=== PATIENT | female | born 1955 | race Hispanic/Latino ===

== ENCOUNTER 2019-01-03 03:46 | Emergency (ER) | payer SELFPAY ==
[2019-01-03 04:12] VITALS: BP 196/82
[2019-01-03] MEDS ORDERED: DELTASONE PO ONE (04:27)
[2019-01-03] MEDS ORDERED: TORADOL IM ONE (04:27)
--- NOTE | 2019-01-03 04:29 | Emergency Department Report ---
HPI - General Chief Complaint: Extremity Injury, Upper Time Seen by Provider: 01/03/19 04:25 - HPI HPI: Patient is a pleasant 63-year-old female who comes to the ER tonight after waking up from her sleep with her right arm and fingers having paracentesis. She states that today while at work Dr. Patterson had her walk a patient in room 3. The patient became weak and started to fall and the patient used her right arm to prevent the patient from falling until Shlomo could calm and help with the patient. Patient states that immediately after the injury she felt some pain in her distal forearm but didn't think anything of it. However, she became alarmed when she woke up tonight with additional symptoms. ED Past Medical Hx - Past Medical History Previous Medical History?: Yes Hx Hypertension: Yes Additional medical history: Thyroid Disease - Surgical History Past Surgical History?: Yes Additional Surgical History: , Tonsilectomy - Social History Smoking Status: Never Smoker Substance Use Type: None - Medications Home Medications: Home Medications Medication Instructions Recorded Confirmed Last Taken Type Cyclobenzaprine [Flexeril] 10 mg PO TID PRN #10 tablet 01/03/19 Unknown Rx Ibuprofen [Motrin] 800 mg PO Q8HR PRN #20 tablet 01/03/19 Unknown Rx predniSONE [Deltasone] 20 mg PO DAILY #5 tablet 01/03/19 Unknown Rx ED Review of Systems ROS: Stated complaint: RIGHT WRIST/SHOULDER PAIN Other details as noted in HPI Comment: All other systems reviewed and negative Physical Exam - Physical Exam Vital Signs: Vital Signs 01/03/19 04:02 Temperature 98.6 F Pulse Rate 82 Respiratory 16 Rate Blood Pressure 196/82 O2 Sat by Pulse 100 Oximetry Physical Exam: ALERT AND ORIENTED FULL ROM SPASM RIGHT TRAP RAPID CAP REFILL RADIAL/ULNA PULSE NORMAL DROVE SELF TO ER ED Course Vital Signs 01/03/19 04:02 Temperature 98.6 F Pulse Rate 82 Respiratory 16 Rate Blood Pressure 196/82 O2 Sat by Pulse 100 Oximetry - Reevaluation(s) Reevaluation #1: 01/03/19 04:27 HOME RX SYNTHROID NORVASC ED Medical Decision Making - Radiology Data Radiology results: report reviewed, image reviewed TORADOL IM AND PREDNISONE PO GIVEN IN ER XRAYS NOTED DC HOME WITH DC PLAN OF CARE AND FOLLOW UP WITH [employer] IN AM Vital Signs 01/03/19 04:02 Temperature 98.6 F Pulse Rate 82 Respiratory 16 Rate Blood Pressure 196/82 O2 Sat by Pulse 100 Oximetry - Medical Decision Making XRAY Vital Signs 01/03/19 04:02 Temperature 98.6 F Pulse Rate 82 Respiratory 16 Rate Blood Pressure 196/82 O2 Sat by Pulse 100 Oximetry - Differential Diagnosis RO FX/DISLOCATION Critical care attestation.: If time is entered above; I have spent that time in minutes in the direct care of this critically ill patient, excluding procedure time. ED Disposition Clinical Impression: Strain of right upper arm, Muscle spasm Disposition: DC-01 TO HOME OR SELFCARE Is pt being admited?: No Does the pt Need Aspirin: No Condition: Stable Instructions: Muscle Strain (ED) Additional Instructions: MEDS ORDERED TONIGHT FOLLOW UP WITH [employer] [facility] IN THE AM WARM COMPRESSES AND BATHS. Prescriptions: predniSONE [Deltasone] 20 mg PO DAILY #5 tablet Cyclobenzaprine [Flexeril] 10 mg PO TID PRN #10 tablet PRN Reason: Muscle Spasm Ibuprofen [Motrin] 800 mg PO Q8HR PRN #20 tablet PRN Reason: Pain , Severe (7-10) Referrals: ZAIN FLORENCE MD [Staff Physician] - 3-5 Days Forms: Work/School Release Form(ED) Time of Disposition: 04:27
--- NOTE | 2019-01-03 04:52 | XRay Report ---
RIGHT FOREARM 2 VIEWS 0437 INDICATION: PAIN R ARM, lifting injury, finger numbness which has resolved COMPARISON: None available. FINDINGS: No fractures or dislocations are seen. RIGHT SHOULDER 3 VIEWS 0435 INDICATION: PAIN R ARM, lifting injury COMPARISON: None available. FINDINGS: No fractures or dislocations are seen. Moderate spurring is seen inferiorly from the acromi on which may impinge on the rotator cuff. Signer Name: Topher Acosta MD Signed: 01/03/2019 4:48 AM Workstation Name: [id number]
== END 2019-01-03 05:31 | disposition home or self-care (01) ==
LOC: ED 03:46
DX: S46.911A Strain of unspecified muscle, fascia and tendon at shoulder and upper arm level, right arm, initial encounter (principal); I10 Essential (primary) hypertension; Z90.89 Acquired absence of other organs; Z88.1 Allergy status to other antibiotic agents; W19.XXXA Unspecified fall, initial encounter; Y93.89 Activity, other specified; Y92.89 Other specified places as the place of occurrence of the external cause; Y99.8 Other external cause status
CPT/HCPCS: 73030; 73090; 96372; 99283; J1885; J7512

== ENCOUNTER 2019-06-10 21:44 | Emergency (ER) | payer BC, OTHER ==
--- NOTE | 2019-06-10 21:52 | Emergency Department Report ---
Blank Doc - Documentation Documentation: 64-year-old female that presents with dizziness and body aches. This initial assessment/diagnostic orders/clinical plan/treatment(s) is/are subject to change based on patient's health status, clinical progression and re- assessment by fellow clinical providers in the ED. Further treatment and workup at subsequent clinical providers discretion. Patient/guardians urged not to elope from the ED as their condition may be serious if not clinically assessed and managed. Initial orders include: 1- Patient sent to [facility] for further evaluation and treatment 2- labs 3- UA
[2019-06-10 21:54] VITALS: BP 176/78
[2019-06-10] MEDS ORDERED: MECLIZINE 25 MG TAB PO ONE (22:55)
--- NOTE | 2019-06-10 22:59 | Emergency Department Report ---
HPI - General Chief Complaint: Upper Respiratory Infection Time Seen by Provider: 06/10/19 21:50 - HPI HPI: Room 43 The patient is a 64-year-old female present with a chief complaint of body aches chills and dizziness. Patient states her symptoms began 2 nights ago with body aches chills and dizziness. Patient states this evening she developed nausea and tinnitus. Patient admits to occasional rhinorrhea but denies cough, dysuria or hematuria. The patient states today she began feeling jittery. Patient admits to subjective fever but denies sneezing. The patient states she takes aspirin 81 mg daily and has not increased that dose ED Past Medical Hx - Past Medical History Previous Medical History?: Yes Hx Hypertension: Yes Additional medical history: HYPERTHYROIDISM - Surgical History Past Surgical History?: No Additional Surgical History: , Tonsilectomy - Family History Family history: no significant - Social History Smoking Status: Never Smoker Substance Use Type: Alcohol (Occasional) - Medications Home Medications: Home Medications Medication Instructions Recorded Confirmed Last Taken Type Cyclobenzaprine [Flexeril] 10 mg PO TID PRN #10 tablet 01/03/19 Unknown Rx Ibuprofen [Motrin] 800 mg PO Q8HR PRN #20 tablet 01/03/19 Unknown Rx predniSONE [Deltasone] 20 mg PO DAILY #5 tablet 01/03/19 Unknown Rx Meclizine [Antivert] 25 mg PO TID PRN #20 tablet 06/11/19 Unknown Rx ED Review of Systems ROS: Stated complaint: FLU SYM Other details as noted in HPI Constitutional: chills, fever (Subjective) ENT: other (Tinnitus) Respiratory: denies: cough Cardiovascular: denies: chest pain Endocrine: no symptoms reported Gastrointestinal: nausea, vomiting Genitourinary: denies: dysuria, hematuria Neurological: vertigo Physical Exam - Physical Exam Vital Signs: Vital Signs 06/10/19 21:51 Temperature 98.7 F Pulse Rate 105 H Respiratory 18 Rate Blood Pressure 176/78 O2 Sat by Pulse 98 Oximetry Physical Exam: GENERAL: The patient is well-developed well-nourished female sitting in stretcher not appearing to be in acute distress. [] HEENT: Normocephalic. Atraumatic. Extraocular motions are intact. Patient has moist mucous membranes. TMs clear bilaterally NECK: Supple. No meningitic signs are noted. Trachea midline CHEST/LUNGS: Clear to auscultation. There is no respiratory distress noted. HEART/CARDIOVASCULAR: Regular. There is no tachycardia. There is no gallop rub or murmur. ABDOMEN: Abdomen is soft, nontender. Patient has normal bowel sounds. There is no abdominal distention. SKIN: There is no rash. There is no edema. There is no diaphoresis. NEURO: The patient is awake, alert, and oriented. The patient is cooperative. The patient has no focal neurologic deficits. The patient has normal speech. Cranial nerves II through XII grossly intact, no drift. No dysmetria noted with [id number] bilaterally MUSCULOSKELETAL: There is no evidence of acute injury. ED Course Vital Signs 06/10/19 21:51 Temperature 98.7 F Pulse Rate 105 H Respiratory 18 Rate Blood Pressure 176/78 O2 Sat by Pulse 98 Oximetry ED Medical Decision Making - Lab Data Result diagrams: 06/10/19 23:04 06/10/19 23:04 - Radiology Data Radiology results: report reviewed (CT head), image reviewed (CT head) [place] [id number] Cat Scan Report Signed Patient: DELMA SANTA MR#: [id number] : 1955 Acct:[id number] Age/Sex: 64 / F ADM Date: 06/10/19 Loc: ED Attending Dr: Ordering Physician: ENEIDA PATEL MD Date of Service: 06/10/19 Procedure(s): CT head/brain wo con Accession Number(s): [id number] cc: ENEIDA PATEL MD CT HEAD WITHOUT CONTRAST INDICATION: Dizziness TECHNIQUE: Axial slices were obtained through the head. Coronal and sagittal reformatted images were obtained. COMPARISON: None available. FINDINGS: There is no intracranial hemorrhage or extra-axial fluid collection. Ventricles, basilar cisterns, and sulci appear within normal limits for age. There is no mass lesion or midline shift. No acute territorial infarct is identified. Bone windows demonstrate no acute osseous abnormality. Paranasal sinuses and mastoid air cells appear clear. TECHNIQUE: All CT scans at this facility use dose modulation, iterative reconstruction, automated exposure control, weight based dosing, when appropriate, to reduce radiation dose to as low as reasonably achievable. IMPRESSION: 1. No acute intracranial abnormality. Signer Name: Justus Smith MD Signed: 06/10/2019 11:52 PM Workstation Name: [id number] Transcribed By: SS Dictated By: Justus Smith MD Electronically Authenticated By: Justus Smith MD Signed Date/Time: 06/10/192351 DD/ 49 TD/TT: - Differential Diagnosis URI, intracranial mass, hyperthyroidism, UTI, influenza Critical care attestation.: If time is entered above; I have spent that time in minutes in the direct care of this critically ill patient, excluding procedure time. ED Disposition Clinical Impression: Dizziness Disposition: Z-07 ELOPED Is pt being admited?: No Does the pt Need Aspirin: No Condition: Stable Instructions: Vertigo (ED) Additional Instructions: Return to the emergency department should you develop worsening symptoms, inability to tolerate food or liquids, high fever or any other concerns Prescriptions: Meclizine [Antivert] 25 mg PO TID PRN #20 tablet PRN Reason: Vertigo Referrals: PRIMARY CARE, [Primary Care Provider] - 3-5 Days HORTENCIA ZEE MD [Staff Physician] - [facility] (Dr. Zee is a neurologist. Please follow-up with him for further evaluation) Time of Disposition: 02:47 (Patient does not wish to wait for the urinalysis results)
[2019-06-10 23:32] LABS: Basophils # (Auto) 0.1 K/mm3 (0.0-0.1); Basophils % (Auto) 0.5 % (0.0-1.8); Eosinophils # (Auto) 0.3 K/mm3 (0.0-0.4); Eosinophils % (Auto) 2.6 % (0.0-4.3); Hemoglobin 15.2 gm/dl (10.1-14.3); Lymphocytes # (Auto) 2.6 K/mm3 (1.2-5.4); Lymphocytes % (Auto) 20.2 % (13.4-35.0); Mean Corpuscular HGB Conc 34 % (30-34); Mean Corpuscular Volume 90 fl (79-97); Monocytes # (Auto) 0.7 K/mm3 (0.0-0.8); Monocytes % (Auto) 5.6 % (0.0-7.3); Platelet Count 300 K/mm3 (140-440); Red Cell Distribution Width 13.9 % (13.2-15.2)
[2019-06-10 23:56] LABS: Alanine Aminotransferase 23 units/L (7-56); BUN/Creatinine Ratio 23; Blood Urea Nitrogen 18 mg/dL (7-17); Calcium 9.2 mg/dL (8.4-10.2); Hemolysis Index 12
--- NOTE | 2019-06-10 23:56 | Cat Scan Report ---
CT HEAD WITHOUT CONTRAST INDICATION: Dizziness TECHNIQUE: Axial slices were obtained through the head. Coronal and sagittal reformatted images were obtained. COMPARISON: None available. FINDINGS: There is no intracranial hemorrhage or extra-axial fluid collection. Ventricles, basilar cisterns, an d sulci appear within normal limits for age. There is no mass lesion or midline shift. No acute maryse torial infarct is identified. Bone windows demonstrate no acute osseous abnormality. Paranasal sinuses and mastoid air cells appear clear. TECHNIQUE: All CT scans at this facility use dose modulation, iterative reconstruction, automated ex posure control, weight based dosing, when appropriate, to reduce radiation dose to as low as reasonab ly achievable. IMPRESSION: 1. No acute intracranial abnormality. Signer Name: Justus Smith MD Signed: 06/10/2019 11:52 PM Workstation Name: [id number]
[2019-06-11 00:06] LABS: Free T4 (Free Thyroxine) 1.19 ng/dL (0.76-1.46)
[2019-06-11] MEDS ORDERED: MECLIZINE 25 MG TAB ONE (01:05)
[2019-06-11 03:09] LABS: Bacteria,Urine 2+ /HPF (Negative); Mucus,Urine FEW /HPF
[2019-06-11 03:28] LABS: Bilirubin,Urine Negative (Negative); Blood,Urine Negative (Negative); Color,Urine Yellow (Yellow); Protein,Urine <15 mg/dL mg/dL (Negative)
[2019-06-11 03:29] LABS: Urobilinogen,Urine < 2.0 mg/dL (<2.0)
== END 2019-06-11 02:55 | disposition home or self-care (01) ==
LOC: ED 21:44
DX: R42 Dizziness and giddiness (principal); I10 Essential (primary) hypertension; Z79.899 Other long term (current) drug therapy; Z98.890 Other specified postprocedural states; Z88.8 Allergy status to other drugs, medicaments and biological substances; Z90.89 Acquired absence of other organs
CPT/HCPCS: 36415; 70450; 80053; 80320; 81001; 84439; 84443; 85025; 87400; G0480

== ENCOUNTER 2019-07-24 11:19 | Emergency (ER) | payer BC ==
--- NOTE | 2019-07-24 11:45 | Event Note ---
ED Screening Note Date of service: 07/24/19 Time: 11:29 ED Screening Note: This initial assessment/diagnostic orders/clinical plan/treatment(s) is/are subject to change based on patients health status, clinical progression and re- assessment by fellow clinical providers in the ED. Further treatment and workup at subsequent clinical providers discretion. Patient/guardian urged not to elope from the ED as their condition may be serious if not clinically assessed and managed. Initial orders include: 64 y/o female comes in for dry cough, fever, bodyaches and covid-19 positive patient.
--- NOTE | 2019-07-24 12:11 | XRay Report ---
CHEST 2 VIEWS INDICATION: sob and dry cough. COMPARISON: None. FINDINGS: Support devices: None. Heart: Within normal limits. Pulmonary vasculature: Normal. Lungs/pleura: Mild bilateral lower lobe patchy predominantly peripheral lung opacities. The upper lob es are clear. No pleural effusion. No pneumothorax. Additional findings: None. IMPRESSION: 1. Bilateral lower lobe lung opacities of uncertain chronicity and significance. 2. Early pneumonia is a possibility. Signer Name: Yony Blanco MD Signed: 07/24/2019 12:07 PM Workstation Name: [id number]
[2019-07-24] MEDS ORDERED: dexAMETHasone 20 MG/5 ML VIAL IV ONE (12:29)
[2019-07-24] MEDS ORDERED: SODIUM CHLORIDE 0.9% 1000 ML IV SOLN IV ONE (12:29)
[2019-07-24] MEDS ORDERED: ACETAMINOPEN W/CODEINE 120-12MG ORAL LIQD 5 ML PO ONE (12:30)
[2019-07-24 12:40] LABS: Basophils % (Auto) 0.4 % (0.0-1.8); Eosinophils % (Auto) 0.1 % (0.0-4.3); Hematocrit 44.8 % (30.3-42.9); Lymphocytes # (Auto) 1.2 K/mm3 (1.2-5.4); Lymphocytes % (Auto) 13.9 % (13.4-35.0); Mean Corpuscular HGB Conc 34 % (30-34); Mean Corpuscular Volume 88 fl (79-97); Monocytes # (Auto) 0.9 K/mm3 (0.0-0.8); Monocytes % (Auto) 9.9 % (0.0-7.3); Platelet Count 260 K/mm3 (140-440); Red Blood Count 5.09 M/mm3 (3.65-5.03); Red Cell Distribution Width 14.1 % (13.2-15.2)
[2019-07-24 13:02] LABS: Alanine Aminotransferase 42 units/L (7-56); BUN/Creatinine Ratio 26; Blood Urea Nitrogen 18 mg/dL (7-17); Calcium 8.9 mg/dL (8.4-10.2); Hemolysis Index 18
--- NOTE | 2019-07-24 13:58 | Emergency Department Report ---
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 Patient states that in the past week she has had 3 possible contact with a cold with positive patients. Patient admits a past medical history of asthma. ED Review of Systems ROS: Stated complaint: COUGH Other details as noted in HPI Comment: All other systems reviewed and negative ED Past Medical Hx - Past Medical History Previous Medical History?: Yes Hx Hypertension: Yes Additional medical history: HYPERTHYROIDISM - Surgical History Past Surgical History?: Yes Additional Surgical History: , Tonsilectomy - Social History Smoking Status: Never Smoker Substance Use Type: Alcohol - Medications Home Medications: Home Medications Medication Instructions Recorded Confirmed Last Taken Type Cyclobenzaprine [Flexeril] 10 mg PO TID PRN #10 tablet 01/03/19 Unknown Rx Ibuprofen [Motrin] 800 mg PO Q8HR PRN #20 tablet 01/03/19 Unknown Rx predniSONE [Deltasone] 20 mg PO DAILY #5 tablet 01/03/19 Unknown Rx Meclizine [Antivert] 25 mg PO TID PRN #20 tablet 06/11/19 Unknown Rx Albuterol INH(or & Nicu Only) 2 puff IH QID PRN #8.5 gram 07/24/19 Unknown Rx [ProAir HFA Inhaler] Amoxicillin/K Clav Tab [Augmentin 1 tab PO Q12HR #14 tab 07/24/19 Unknown Rx 875 mg] Hydroxychloroquine (Covid 19) 200 mg PO BID #14 tablet 07/24/19 Unknown Rx [Plaquenil (Covid 19)] Minor Respiratory Exam - Exam General: Vital signs noted. No distress. Alert and acting appropriately. HEENT: Yes Moist Mucous Membranes, No Pharyngeal Erythema, No Pharyngeal Exudates, No Rhinorrhea, No Conjuctival Injection, No Frontal Tenderness, No Maxillary Tenderness Ear: Neither TM Bulge, Neither TM Erythema, Neither EAC Pain, Neither EAC Discharge Neck: Yes Supple, No Adenopathy Lungs: Yes Good Air Exchange, No Wheezes, No Ronchi, No Stridor, No Cough, No Labored Respirations, No Retractions, No Use of Accessory Muscles, No Other Abnormal Lung Sounds Heart: Yes Regular, No Murmur Abdomen: Yes Normal Bowel Sounds, No Tenderness, No Peritoneal Signs Skin: No Rash, No Edema Neurologic: Alert and oriented, no deficits. Musculoskeletal: Unremarkable. ED Course Vital Signs 07/24/19 07/24/19 11:24 12:49 Temperature 99.7 F H Pulse Rate 107 H Respiratory 18 16 Rate Blood Pressure 180/76 O2 Sat by Pulse 95 Oximetry ED Medical Decision Making - Lab Data Result diagrams: 07/24/19 11:56 07/24/19 11:56 - Radiology Data Radiology results: report reviewed, image reviewed CHEST 2 VIEWS INDICATION: sob and dry cough. COMPARISON: None. FINDINGS: Support devices: None. Heart: Within normal limits. Pulmonary vasculature: Normal. Lungs/pleura: Mild bilateral lower lobe patchy predominantly peripheral lung opacities. The upper lobes are clear. No pleural effusion. No pneumothorax. Additional findings: None. IMPRESSION: 1. Bilateral lower lobe lung opacities of uncertain chronicity and significance. 2. Early pneumonia is a possibility. Signer Name: Yony Millard MD Signed: 07/24/2019 12:07 PM Workstation Name: [id number] Transcribed By: REF Dictated By: YONY MILLARD MD Electronically Authenticated By: YONY MILLARD MD Signed Date/Time: 07/24/19 1207 - Medical Decision Making This is a 64-year-old female with upper respiratory infection. Patient had a positive covid 19 exposure. Patient may have a covid upper respiratory infection. Present under investigation report was filled out and submitted. Labs collected from patient. Critical care attestation.: If time is entered above; I have spent that time in minutes in the direct care of this critically ill patient, excluding procedure time. ED Disposition Clinical Impression: Atypical pneumonia, Suspected COVID-19 virus infection Disposition: TO HOME OR SELFCARE Is pt being admited?: No Does the pt Need Aspirin: No Condition: Stable Instructions: COVID-19, Upper Respiratory Infection (ED), Viral Pneumonia (ED) Additional Instructions: Make sure to follow up with the primary care physician as discussed. Take all your medications as you've been prescribed. Self quarantine for the next 14 days If you have any worsening symptoms or develop new symptoms please return to ED immediately. Prescriptions: Amoxicillin/K Clav Tab [Augmentin 875 mg] 1 tab PO Q12HR #14 tab Hydroxychloroquine (Covid 19) [Plaquenil (Covid 19)] 200 mg PO BID #14 tablet Albuterol INH(or & Nicu Only) [ProAir HFA Inhaler] 2 puff IH QID PRN #8.5 gram PRN Reason: Shortness Of Breath Referrals: PRIMARY CARE, [Primary Care Provider] - 3-5 Days [facility] [Provider Group] - 3-5 Days [facility] [Provider Group] - 3-5 Days Forms: Accompanied Note, Work/School Release Form(ED) Time of Disposition: 15:36
[2019-07-24] MEDS ORDERED: AZITHROMYCIN 250 MG TAB PO ONE (14:19)
[2019-07-24 15:28] LABS: C-Reactive Protein 8.6 mg/dL (0.00-1.30)
[2019-07-24 17:41] VITALS: BP 136/70
== END 2019-07-24 17:15 | disposition home or self-care (01) ==
LOC: ED 11:19
DX: J18.9 Pneumonia, unspecified organism (principal); I10 Essential (primary) hypertension; E03.9 Hypothyroidism, unspecified; Z79.899 Other long term (current) drug therapy; Z88.8 Allergy status to other drugs, medicaments and biological substances; Z03.818 Encounter for observation for suspected exposure to other biological agents ruled out
CPT/HCPCS: 36415; 71046; 80053; 82728; 83615; 84145; 85025; 85379; 86140; 87400; 96374; 99284; J1100; J7030

== ENCOUNTER 2020-03-06 03:57 | Emergency (ER) | payer BC ==
[2020-03-06] MEDS ORDERED: PANTOPRAZOLE 40 MG INJ IV ONE (04:21)
[2020-03-06] MEDS ORDERED: FAMOTIDINE 20 MG/2 ML INJ IV ONE (04:21)
[2020-03-06 04:49] LABS: Basophils # (Auto) 0.1 K/mm3 (0.0-0.1); Basophils % (Auto) 0.6 % (0.0-1.8); Eosinophils # (Auto) 0.4 K/mm3 (0.0-0.4); Eosinophils % (Auto) 3.1 % (0.0-4.3); Hematocrit 43.1 % (30.3-42.9); Hemoglobin 14.8 gm/dl (10.1-14.3); Lymphocytes # (Auto) 2.3 K/mm3 (1.2-5.4); Lymphocytes % (Auto) 19.2 % (13.4-35.0); Mean Corpuscular HGB Conc 34 % (30-34); Mean Corpuscular Volume 89 fl (79-97); Monocytes # (Auto) 0.7 K/mm3 (0.0-0.8); Monocytes % (Auto) 5.8 % (0.0-7.3); Platelet Count 280 K/mm3 (140-440); Red Blood Count 4.84 M/mm3 (3.65-5.03); Red Cell Distribution Width 14.1 % (13.2-15.2)
--- NOTE | 2020-03-06 04:56 | Emergency Department Report ---
ED Chest Pain HPI - General Chief Complaint: Chest Pain Stated Complaint: INDIGESTION/WEANESS/ Time Seen by Provider: 03/06/20 04:27 Source: patient Mode of arrival: Ambulatory Limitations: No Limitations - History of Present Illness Initial Comments: Patient is a 65-year-old female who is presenting with which she believes is severe indigestion however the change in quality slightly she decided to come to the emergency department for evaluation. Patient states that all yesterday throughout the daytime she was having severe bouts of indigestion. She is having warm hot sensation from the epigastrium up through the chest intermittently. Patient took some [id number] medications with minimal relief. Patient states at 1 point yesterday afternoon she became very fatigued and had to lie down to take a nap. After the patient went to bed tonight she was awakened at approximately 230 tonight with extreme diaphoresis and the indigestion was continued. She states that he is a burning type sensation in the chest intermittently. She denies any shortness of breath cough cold congestion fevers or chills. - Related Data Previous Rx's Medication Instructions Recorded Last Taken Type Cyclobenzaprine [Flexeril] 10 mg PO TID PRN #10 tablet 01/03/19 Unknown Rx Ibuprofen [Motrin] 800 mg PO Q8HR PRN #20 tablet 01/03/19 Unknown Rx predniSONE [Deltasone] 20 mg PO DAILY #5 tablet 01/03/19 Unknown Rx Meclizine [Antivert] 25 mg PO TID PRN #20 tablet 06/11/19 Unknown Rx Albuterol Mdi (or & Nicu Only) 2 puff IH QID PRN #8.5 gram 07/24/19 Unknown Rx [ProAir HFA Inhaler] Amoxicillin/K Clav Tab [Augmentin 1 tab PO Q12HR #14 tab 07/24/19 Unknown Rx 875 mg] Hydroxychloroquine (Covid 19) 200 mg PO BID #14 tablet 07/24/19 Unknown Rx [Plaquenil (Covid 19)] Pantoprazole [Protonix] 40 mg PO QDAY #30 tablet 03/06/20 Unknown Rx Allergies Allergy/AdvReac Type Severity Reaction Status Date / Time gentamicin Eye drops Allergy Swelling Uncoded 01/03/19 04:14 Heart Score - HEART Score History: Slightly suspicious EKG: Non-specific Age: 45-65 Risk factors: 1-2 risk factors Troponin: < normal limit HEART Score: 3 ED Review of Systems ROS: Stated complaint: INDIGESTION/WEANESS/ Other details as noted in HPI Comment: All other systems reviewed and negative ED Past Medical Hx - Past Medical History Previous Medical History?: Yes Hx Hypertension: Yes Additional medical history: HYPERTHYROIDISM - Surgical History Past Surgical History?: Yes Additional Surgical History: , Tonsilectomy - Social History Smoking Status: Never Smoker Substance Use Type: None - Medications Home Medications: Home Medications Medication Instructions Recorded Confirmed Last Taken Type Cyclobenzaprine [Flexeril] 10 mg PO TID PRN #10 tablet 01/03/19 Unknown Rx Ibuprofen [Motrin] 800 mg PO Q8HR PRN #20 tablet 01/03/19 Unknown Rx predniSONE [Deltasone] 20 mg PO DAILY #5 tablet 01/03/19 Unknown Rx Meclizine [Antivert] 25 mg PO TID PRN #20 tablet 06/11/19 Unknown Rx Albuterol Mdi (or & Nicu Only) 2 puff IH QID PRN #8.5 gram 07/24/19 Unknown Rx [ProAir HFA Inhaler] Amoxicillin/K Clav Tab [Augmentin 1 tab PO Q12HR #14 tab 07/24/19 Unknown Rx 875 mg] Hydroxychloroquine (Covid 19) 200 mg PO BID #14 tablet 07/24/19 Unknown Rx [Plaquenil (Covid 19)] Pantoprazole [Protonix] 40 mg PO QDAY #30 tablet 03/06/20 Unknown Rx ED Physical Exam - General Limitations: No Limitations General appearance: alert, in no apparent distress - Head Head exam: Present: atraumatic, normocephalic - Eye Eye exam: Present: normal appearance - ENT ENT exam: Present: mucous membranes moist - Neck Neck exam: Present: normal inspection - Respiratory Respiratory exam: Present: normal lung sounds bilaterally. Absent: respiratory distress, wheezes, rales, rhonchi - Cardiovascular Cardiovascular Exam: Present: regular rate, normal rhythm, normal heart sounds. Absent: systolic murmur, diastolic murmur, rubs, gallop - GI/Abdominal GI/Abdominal exam: Present: soft, normal bowel sounds. Absent: distended, tenderness, guarding - Extremities Exam Extremities exam: Present: normal inspection - Back Exam Back exam: Present: normal inspection - Neurological Exam Neurological exam: Present: alert, oriented X3 - Psychiatric Psychiatric exam: Present: normal affect, normal mood - Skin Skin exam: Present: warm, dry, intact, normal color. Absent: rash ED Course Vital Signs 03/06/20 03/06/20 03/06/20 04:02 04:55 05:01 Temperature 98.1 F 98.6 F Pulse Rate 90 78 73 Respiratory 18 17 20 Rate Blood Pressure 196/83 153/64 Blood Pressure 178/72 [Left] O2 Sat by Pulse 95 98 98 Oximetry 03/06/20 03/06/20 03/06/20 05:15 05:30 05:45 Temperature Pulse Rate 75 75 72 Respiratory 19 18 14 Rate Blood Pressure 159/62 152/64 151/63 Blood Pressure [Left] O2 Sat by Pulse 97 97 98 Oximetry 03/06/20 03/06/20 03/06/20 06:00 06:15 06:30 Temperature Pulse Rate 67 68 72 Respiratory 15 18 19 Rate Blood Pressure 147/59 151/62 148/64 Blood Pressure [Left] O2 Sat by Pulse 99 98 98 Oximetry 03/06/20 03/06/20 03/06/20 06:45 07:00 07:15 Temperature Pulse Rate 72 74 72 Respiratory 18 17 19 Rate Blood Pressure 158/68 168/74 158/61 Blood Pressure [Left] O2 Sat by Pulse 99 99 99 Oximetry 03/06/20 03/06/20 07:31 08:06 Temperature Pulse Rate 71 80 Respiratory 17 16 Rate Blood Pressure 149/56 Blood Pressure 142/64 [Left] O2 Sat by Pulse 99 100 Oximetry - Reevaluation(s) Reevaluation #1: 03/06/20 05:26 At this time the patient's blood pressure is naturally decreased. GERD symptoms are improved. Her first troponin is negative. Will check 1 more in ap proximately 1 hour. If this is also is a 0 the patient be stable for discharge. Patient be started on Protonix and but will also be given cardiology follow-up ED Medical Decision Making - Lab Data Result diagrams: 03/06/20 04:31 03/06/20 04:31 - EKG Data 03/06/20 04:59 EKG shows a sinus rhythm with a rate of 89. The axis is normal intervals are normal. Some diffuse T wave flattening but no other abnormalities seen. No ST segment elevation or depressions. Time of interpretation is 0417 Critical care attestation.: If time is entered above; I have spent that time in minutes in the direct care of this critically ill patient, excluding procedure time. ED Disposition Clinical Impression: Atypical chest pain, GERD (gastroesophageal reflux disease), Hypertensive urgency Disposition: DC-01 TO HOME OR SELFCARE Is pt being admited?: No Does the pt Need Aspirin: No Condition: Stable Instructions: Food Choices for Gastroesophageal Reflux Disease, Adult, [id number], Heartburn, [id number], Nonspecific Chest Pain, Adult, Hypertension, Adult, Chest Pain (ED) Prescriptions: Pantoprazole [Protonix] 40 mg PO QDAY #30 tablet Referrals: DEB ALFARO [Staff Physician] - 3-5 Days [facility] [Provider Group] - 3-5 Days
--- NOTE | 2020-03-06 04:57 | XRay Report ---
CHEST 1 VIEW INDICATION / CLINICAL INFORMATION: chest pain. COMPARISON: 07/24/2019 FINDINGS: SUPPORT DEVICES: None. HEART / MEDIASTINUM: No significant abnormality. LUNGS / PLEURA: No significant pulmonary or pleural abnormality. No pneumothorax. ADDITIONAL FINDINGS: No significant additional findings. IMPRESSION: 1. No acute findings. No interval change. Signer Name: Brigitte Joseph MD Signed: 03/06/2020 4:53 AM Workstation Name: [id number]
[2020-03-06 05:09] LABS: BUN/Creatinine Ratio 26; Blood Urea Nitrogen 21 mg/dL (7-17); Calcium 9.9 mg/dL (8.4-10.2); Hemolysis Index 7
[2020-03-06 08:07] VITALS: BP 142/64
== END 2020-03-06 08:05 | disposition home or self-care (01) ==
LOC: ED 03:57
DX: K21.9 Gastro-esophageal reflux disease without esophagitis (principal); I16.0 Hypertensive urgency
CPT/HCPCS: 36415; 71045; 80048; 84484; 85025; 93005; 96374; 96375; 99284; C9113

== ENCOUNTER 2021-08-10 02:58 | Emergency (ER) | payer BC, OTHER ==
[2021-08-10 03:06] VITALS: BP 178/74
--- NOTE | 2021-08-10 04:00 | XRay Report ---
RIGHT SHOULDER 3 VIEW(S) INDICATION / CLINICAL INFORMATION: fall. COMPARISON: Right shoulder x-rays 01/03/2019 FINDINGS: BONES / JOINT(S): No acute fracture or subluxation. No significant arthritis. SOFT TISSUES: No significant abnormality. ADDITIONAL FINDINGS: None. IMPRESSION: 1. No acute fracture or dislocation. Signer Name: Damien Dugan II, MD Signed: 08/10/2021 3:55 AM Workstation Name: [id number]
[2021-08-10] MEDS ORDERED: ACETAMINOPHEN 325 MG TAB PO STA (04:04)
--- NOTE | 2021-08-10 04:04 | Emergency Department Report ---
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 Prior to this fall, she reports that she was in her usual state of health. She did not hit her head or neck. He describes twisting aching burning pain in her right upper extremity, and transient numbness in her right thumb, pointer finger, and middle finger. It is now resolved. She is also endorses paralumbar lower back pain. No weakness, numbness, bladder or bowel incontinence or saddle anesthesia. No additional complaints at this time. Took ibuprofen at home with minimal improvement in symptoms. -: Gradual Location: right, upper extremity Severity scale (0 -10): 4 Quality: aching Consistency: constant Improves with: rest Worsens with: movement Associated Symptoms: denies other symptoms - Related Data Previous Rx's Medication Instructions Recorded Last Taken Type Ibuprofen [Motrin] 800 mg PO Q8HR PRN #20 tablet 01/03/19 Unknown Rx Meclizine [Antivert] 25 mg PO TID PRN #20 tablet 06/11/19 Unknown Rx Albuterol Mdi (or & Nicu Only) 2 puff IH QID PRN #8.5 gram 07/24/19 Unknown Rx [ProAir HFA Inhaler] Pantoprazole [Protonix] 40 mg PO QDAY #30 tablet 03/06/20 Unknown Rx Acetaminophen [Non-Aspirin Extra 650 mg PO Q6HR PRN #30 tablet 08/10/21 Unknown Rx Strength] Acetaminophen [Non-Aspirin Extra 650 mg PO Q6HR PRN #30 tablet 08/10/21 Unknown Rx Strength] Ibuprofen [Motrin] 600 mg PO Q8H PRN #30 tablet 08/10/21 Unknown Rx Ibuprofen [Motrin] 600 mg PO Q8H PRN #30 tablet 08/10/21 Unknown Rx Allergies Allergy/AdvReac Type Severity Reaction Status Date / Time gentamicin Eye drops Allergy Swelling Uncoded 01/03/19 04:14 ED Review of Systems ROS: Stated complaint: FELL AT WORK RIGHT SHOULDER/BACK PAIN Other details as noted in HPI Constitutional: denies: fever Respiratory: denies: cough Cardiovascular: denies: chest pain Gastrointestinal: denies: abdominal pain Musculoskeletal: back pain, arthralgia, myalgia Neurological: paresthesias. denies: weakness ED Past Medical Hx - Past Medical History Previous Medical History?: Yes Hx Hypertension: Yes Additional medical history: HYPERTHYROIDISM - Surgical History Past Surgical History?: Yes Additional Surgical History: , Tonsilectomy - Social History Smoking Status: Never Smoker Substance Use Type: None - Medications Home Medications: Home Medications Medication Instructions Recorded Confirmed Last Taken Type Ibuprofen [Motrin] 800 mg PO Q8HR PRN #20 tablet 01/03/19 Unknown Rx Meclizine [Antivert] 25 mg PO TID PRN #20 tablet 06/11/19 Unknown Rx Albuterol Mdi (or & Nicu Only) 2 puff IH QID PRN #8.5 gram 07/24/19 Unknown Rx [ProAir HFA Inhaler] Pantoprazole [Protonix] 40 mg PO QDAY #30 tablet 03/06/20 Unknown Rx Acetaminophen [Non-Aspirin Extra 650 mg PO Q6HR PRN #30 tablet 08/10/21 Unknown Rx Strength] Acetaminophen [Non-Aspirin Extra 650 mg PO Q6HR PRN #30 tablet 08/10/21 Unknown Rx Strength] Ibuprofen [Motrin] 600 mg PO Q8H PRN #30 tablet 08/10/21 Unknown Rx Ibuprofen [Motrin] 600 mg PO Q8H PRN #30 tablet 08/10/21 Unknown Rx ED Physical Exam - General Limitations: No Limitations General appearance: alert, in no apparent distress, obese - Head Head exam: Present: atraumatic, normocephalic - Eye Eye exam: Present: normal appearance, EOMI. Absent: nystagmus - ENT ENT exam: Present: normal exam, normal orophraynx, mucous membranes moist, normal external ear exam - Neck Neck exam: Present: normal inspection, full ROM. Absent: tenderness, meningismus - Respiratory Respiratory exam: Present: normal lung sounds bilaterally. Absent: respiratory distress, wheezes, rales, rhonchi, stridor, decreased breath sounds - Cardiovascular Cardiovascular Exam: Present: regular rate, normal rhythm, normal heart sounds. Absent: bradycardia, tachycardia, irregular rhythm, systolic murmur, diastolic murmur, rubs, gallop - GI/Abdominal GI/Abdominal exam: Present: soft. Absent: distended, tenderness, guarding, rebound, rigid, pulsatile mass - Extremities Exam Extremities exam: Present: normal inspection, full ROM, other (2+ pulses noted in the bilateral upper and lower extremities. There is no palpable cord. negative Homans sign. Muscular compartments are soft. The pelvis is stable.). Absent: pedal edema, calf tenderness - Back Exam Back exam: Present: normal inspection, full ROM, muscle spasm, paraspinal tenderness. Absent: tenderness, CVA tenderness (R), CVA tenderness (L), vertebral tenderness - Neurological Exam Neurological exam: Present: alert (Sensation is intact to light touch in the bilateral deltoid, median, radial, and ulnar distribution.), oriented X3, normal gait, reflexes normal, other (No facial droop. Tongue midline. Extraocular movements intact bilaterally. Facial sensation intact to light touch in V1, V2, V3 distribution bilaterally. 5 and a 5 strength in 4 extremities. Sensation intact to light touch in 4 extremities.). Absent: motor sensory deficit (Sensation is intact to light touch and proprioception in the bilateral upper and lower extremities) - Psychiatric Psychiatric exam: Present: normal affect, normal mood - Skin Skin exam: Present: warm, dry, intact, normal color. Absent: rash ED Course Vital Signs 08/10/21 03:01 Temperature 97.8 F Pulse Rate 85 Respiratory 16 Rate Blood Pressure 178/74 [Left] O2 Sat by Pulse 98 Oximetry - Pulse Oximetry Interpretation Digit-Finger Initial Pulse Oximetry Readin O2 Sat by Pulse Oximetry: 99 Actions Taken: none ED Medical Decision Making - Lab Data Vital Signs 08/10/21 03:01 Temperature 97.8 F Pulse Rate 85 Respiratory 16 Rate Blood Pressure 178/74 [Left] O2 Sat by Pulse 98 Oximetry - Medical Decision Making Differential diagnosis, including but not limited to: Sprain, strain, neuropraxia, peripheral neuropathy Assessment and plan: 66-year-old female, who is afebrile, with reassuring vital signs, clinically sober, ambulatory with a steady gait, patient is clinically sober at this time. The cervical spine is cleared through nexus and [place] c spine rule who presents to the ER today with a complaint of muscular upper extremity pain, and resolved dysesthesia in her right thumb, pointer, and index finger. Sensation intact to light touch and proprioception in the upper and lower extremities, with appropriate reflexes. She also has intact sensation to light touch in the median, radial, ulnar distribution. No significant bony tenderness. Range of motion intact appropriately in the upper and lower extremities. Rest, ice, compression, elevation, Tylenol, Motrin, outpatient follow-up. Return precautions are reviewed. All questions answered. Critical care attestation.: If time is entered above; I have spent that time in minutes in the direct care of this critically ill patient, excluding procedure time. ED Disposition Clinical Impression: Right upper limb pain Disposition: 01 HOME / SELF CARE / HOMELESS Is pt being admited?: No Does the pt Need Aspirin: No Condition: Stable Instructions: Muscle Pain, Adult Additional Instructions: Pain gets worse before it gets better after blunt trauma. Rest and avoid heavy lifting, and avoid strenuous physical activity. Engage in physical activities as tolerated. Alternate ice packs and heat packs as needed for physical pain Follow-up with your primary care doctor within 7 to 10 days. When taking ibuprofen, take with food. Please return to the emergency room right away with new pain, worsened pain, migration of pain, projectile vomiting, change in mental status, confusion, inability tolerate liquid feeds, new, worsened or different symptoms not present on the initial emergency room evaluation For pain, the patient can take ibuprofen, 600 mg with food every 6 hours, alternating with acetaminophen, 650 mg every 4 hours, also which can be purchased [id number]. Return to the ER right away with new pain, worsened pain, migration of pain, fevers, chills, confusion, weakness, numbness, intractable nausea or vomiting, severe chest pain, or severe abdominal pain. Referrals: [facility] [Provider Group] - 3-5 Days Forms: Work/School Release Form(ED)
== END 2021-08-10 05:00 | disposition home or self-care (01) ==
LOC: ED 02:58
DX: M79.621 Pain in right upper arm (principal); I10 Essential (primary) hypertension; Z88.1 Allergy status to other antibiotic agents
CPT/HCPCS: 99283